=== PATIENT | female | born 1995 | race Caucasian/White ===

== ENCOUNTER 2017-11-21 19:35 | Emergency (ER) | payer SELFPAY ==
--- NOTE | 2017-11-21 20:13 | EDM.PDOC ---
ED HPI GENERAL MEDICAL PROBLEM - General Chief Complaint: General Stated Complaint: PT WEAK Time Seen by Provider: 11/21/17 20:07 - History of Present Illness INITIAL COMMENTS - FREE TEXT/NARRATIVE: HISTORY AND PHYSICAL: History of present illness: Patient's 22-year-old female who presents with a concern of multiple complaints states she had numbness of her legs bilaterally her right arm has been intermittent times one day she had vaginal bleeding related to her schedule. She denies any visual disturbances denies any trauma denies any chest or abdominal pain or other concerns she is a smoker she does not get regular medical care. Review of systems: As per history of present illness and below otherwise all systems reviewed and negative. Past medical history: As per history of present illness and as reviewed below otherwise noncontributory. Surgical history: As per history of present illness and as reviewed below otherwise noncontributory. Social history: No reported history of drug or alcohol abuse. Family history: As per history of present illness and as reviewed below otherwise noncontributory. Physical exam: HEENT: Atraumatic, normocephalic, pupils reactive, negative for conjunctival pallor or scleral icterus, mucous membranes moist, throat clear, neck supple, nontender, trachea midline. Lungs: Clear to auscultation, breath sounds equal bilaterally, chest nontender. Heart: S1S2, regular, negative for clicks, rubs, or JVD. Abdomen: Soft, nondistended, nontender. Negative for masses or hepatosplenomegaly. Negative for costovertebral tenderness. Pelvis: Stable nontender. Genitourinary: Deferred. Rectal: Deferred. Extremities: Atraumatic, negative for cords or calf pain. Neurovascular unremarkable. Neuro: Awake, alert, oriented. Cranial nerves II through XII unremarkable. Cerebellum unremarkable. Motor and sensory unremarkable throughout. Exam nonfocal. Diagnostics: CBC CMP PT/INR CT brain hCG urine drug screen Therapeutics: None Impression: #1 vaginal bleeding #2 paresthesia etiology to be determined Definitive disposition and diagnosis as appropriate pending reevaluation and review of above. - Related Data Allergies Allergy/AdvReac Type Severity Reaction Status Date / Time No Known Allergies Allergy Verified 11/21/17 20:43 Home Meds: Home Meds . [No Known Home Meds] 11/21/17 [History] ED ROS GENERAL - Review of Systems Review Of Systems: ROS reveals no pertinent complaints other than HPI. ED EXAM, GENERAL - Physical Exam Exam: See Below (See dictation) Course - Vital Signs Last Recorded V/S: Last Vital Signs Temp 36.6 C 11/21/17 21:52 Pulse 79 11/21/17 21:52 Resp 18 11/21/17 21:52 BP 110/76 11/21/17 21:52 Pulse Ox 98 11/21/17 21:52 - Orders/Labs/Meds Orders: Active Orders 24 hr Category Date Time Status EKG Documentation Completion [RC] STAT Care 11/21/17 20:10 Active Head wo Cont [CT] Stat Exams 11/21/17 20:13 Taken DRUG SCREEN, URINE [URCHEM] Stat Lab 11/21/17 20:39 Ordered Labs: Laboratory Tests 11/21/17 11/21/17 11/21/17 Range/Units 20:21 20:21 20:21 WBC 9.74 (4.0-11.0) K/uL RBC 4.04 L (4.30-5.90) M/uL Hgb 12.9 (12.0-16.0) g/dL Hct 37.1 (36.0-46.0) % MCV 91.8 (80.0-98.0) fL MCH 31.9 (27.0-32.0) pg MCHC 34.8 (31.0-37.0) g/dL RDW Std Deviation 40.5 (28.0-62.0) fl RDW Coeff of Gabriela 12 (11.0-15.0) % Plt Count 254 (150-400) K/uL MPV 9.90 (7.40-12.00) fL Neut % (Auto) 56.4 (48.0-80.0) % Lymph % (Auto) 33.6 (16.0-40.0) % Lynn % (Auto) 8.7 (0.0-15.0) % Eos % (Auto) 1.1 (0.0-7.0) % Baso % (Auto) 0.2 (0.0-1.5) % Neut # (Auto) 5.5 (1.4-5.7) K/uL Lymph # (Auto) 3.3 H (0.6-2.4) K/uL Lynn # (Auto) 0.9 H (0.0-0.8) K/uL Eos # (Auto) 0.1 (0.0-0.7) K/uL Baso # (Auto) 0.0 (0.0-0.1) K/uL Nucleated RBC % 0.0 /100WBC Nucleated RBCs # 0 K/uL INR 0.98 Sodium 141 (136-145) mmol/L Potassium 3.7 (3.5-5.1) mmol/L Chloride 108 H (98-107) mmol/L Carbon Dioxide 23.9 (21.0-32.0) mmol/L BUN 12 (7.0-18.0) mg/dL Creatinine 0.7 (0.6-1.0) mg/dL Est Cr Clr Drug Dosing 103.40 mL/min Estimated GFR (MDRD) > 60.0 ml/min Glucose 85 (74-106) mg/dL Calcium 8.8 (8.5-10.1) mg/dL Total Bilirubin 0.1 L (0.2-1.0) mg/dL AST 17 (15-37) IU/L ALT 19 (14-63) IU/L Alkaline Phosphatase 51 (46-116) U/L Total Protein 7.2 (6.4-8.2) g/dL Albumin 4.1 (3.4-5.0) g/dL Globulin 3.1 (2.0-3.5) g/dL Albumin/Globulin Ratio 1.3 (1.3-2.8) HCG, Qual (NEG) Urine Opiates Screen (NEGATIVE) Ur Oxycodone Screen (NEGATIVE) Urine Methadone Screen (NEGATIVE) Ur Barbiturates Screen (NEGATIVE) Ur Phencyclidine Scrn (NEGATIVE) Ur Amphetamine Screen (NEGATIVE) U Methamphetamines Scrn (NEGATIVE) U Benzodiazepines Scrn (NEGATIVE) U Cocaine Metab Screen (NEGATIVE) U Marijuana (THC) Screen (NEGATIVE) 11/21/17 11/21/17 Range/Units 20:21 20:39 WBC (4.0-11.0) K/uL RBC (4.30-5.90) M/uL Hgb (12.0-16.0) g/dL Hct (36.0-46.0) % MCV (80.0-98.0) fL MCH (27.0-32.0) pg MCHC (31.0-37.0) g/dL RDW Std Deviation (28.0-62.0) fl RDW Coeff of Gabriela (11.0-15.0) % Plt Count (150-400) K/uL MPV (7.40-12.00) fL Neut % (Auto) (48.0-80.0) % Lymph % (Auto) (16.0-40.0) % Lynn % (Auto) (0.0-15.0) % Eos % (Auto) (0.0-7.0) % Baso % (Auto) (0.0-1.5) % Neut # (Auto) (1.4-5.7) K/uL Lymph # (Auto) (0.6-2.4) K/uL Lynn # (Auto) (0.0-0.8) K/uL Eos # (Auto) (0.0-0.7) K/uL Baso # (Auto) (0.0-0.1) K/uL Nucleated RBC % /100WBC Nucleated RBCs # K/uL INR Sodium (136-145) mmol/L Potassium (3.5-5.1) mmol/L Chloride (98-107) mmol/L Carbon Dioxide (21.0-32.0) mmol/L BUN (7.0-18.0) mg/dL Creatinine (0.6-1.0) mg/dL Est Cr Clr Drug Dosing mL/min Estimated GFR (MDRD) ml/min Glucose (74-106) mg/dL Calcium (8.5-10.1) mg/dL Total Bilirubin (0.2-1.0) mg/dL AST (15-37) IU/L ALT (14-63) IU/L Alkaline Phosphatase (46-116) U/L Total Protein (6.4-8.2) g/dL Albumin (3.4-5.0) g/dL Globulin (2.0-3.5) g/dL Albumin/Globulin Ratio (1.3-2.8) HCG, Qual NEGATIVE (NEG) Urine Opiates Screen NEGATIVE (NEGATIVE) Ur Oxycodone Screen NEGATIVE (NEGATIVE) Urine Methadone Screen NEGATIVE (NEGATIVE) Ur Barbiturates Screen NEGATIVE (NEGATIVE) Ur Phencyclidine Scrn NEGATIVE (NEGATIVE) Ur Amphetamine Screen NEGATIVE (NEGATIVE) U Methamphetamines Scrn NEGATIVE (NEGATIVE) U Benzodiazepines Scrn NEGATIVE (NEGATIVE) U Cocaine Metab Screen NEGATIVE (NEGATIVE) U Marijuana (THC) Screen NEGATIVE (NEGATIVE) Departure - Departure Time of Disposition: 21:54 Disposition: Home, Self-Care 01 Condition: Good Clinical Impression: Vaginal bleeding, Paresthesia - Discharge Information Referrals: PCP,None [Primary Care Provider] - Forms: ED Department Discharge Additional Instructions: The following information is given to patients seen in the emergency department who are being discharged to home. This information is to outline your options for follow-up care. We provide all patients seen in our emergency department with a follow-up referral. The need for follow-up, as well as the timing and circumstances, are variable depending upon the specifics of your emergency department visit. If you don't have a primary care physician on staff, we will provide you with a referral. We always advise you to contact your personal physician following an emergency department visit to inform them of the circumstance of the visit and for follow-up with them and/or the need for any referrals to a consulting specialist. The emergency department will also refer you to a specialist when appropriate. This referral assures that you have the opportunity for followup care with a specialist. All of these measure are taken in an effort to provide you with optimal care, which includes your followup. Under all circumstances we always encourage you to contact your private physician who remains a resource for coordinating your care. When calling for followup care, please make the office aware that this follow-up is from your recent emergency room visit. If for any reason you are refused follow-up, please contact the [facility] emergency department at and asked to speak to the emergency department charge nurse. [facility] Specialty Care - Neurology Professional Building [address] [place] [address], [address] [place] [address] [facility] Primary Care - Women's Health [address] [place] [id number] - My Orders Last 24 Hours: My Active Orders 11/21/17 20:10 EKG Documentation Completion [RC] STAT 11/21/17 20:13 Head wo Cont [CT] Stat 11/21/17 20:39 DRUG SCREEN, URINE [URCHEM] Stat - Assessment/Plan Last 24 Hours: My Active Orders 11/21/17 20:10 EKG Documentation Completion [RC] STAT 11/21/17 20:13 Head wo Cont [CT] Stat 11/21/17 20:39 DRUG SCREEN, URINE [URCHEM] Stat
[2017-11-21 20:48] LABS: CHLORIDE,CL 108 mmol/L (98-107); SODIUM,NA 141 mmol/L (136-145)
--- NOTE | 2017-11-22 13:11 | CT ---
EXAM DATE: 11/21/17 PATIENT'S AGE: 22 Patient: CABRERA CAR Facility: [place], [place] Site . Site : 1995 Study: CT Head [id number]/[id number] 9:20:34 PM Ordering Physician: Drea Kaba Final Report: CT HEAD DATE: 11/21/2017 CLINICAL HISTORY: Patient with weakness, numbness and tingling. TECHNIQUE: Standard CT scanning of the head was performed. COMPARISON: None. FINDINGS: There is no intracranial hemorrhage. The barber matter-white matter differentiation is intact. The size of the ventricular system is normal for age. There is no mass effect or midline shift. The calvarium is unremarkable. The orbits are unremarkable. The paranasal sinuses are unremarkable. The mastoid air cells are unremarkable. The soft tissues are unremarkable. IMPRESSION: Normal head CT. Please note that all CT scans at this facility use dose modulation, iterative reconstruction, and/or weight-based dosing when appropriate to reduce radiation dose to as low as reasonably achievable. Dictated by: Marely Don MD @ 11/21/2017 21:43:51 (Electronic Signature) Report Signed by Proxy. [facility]
== END 2017-11-21 22:03 | disposition home or self-care (01) ==
LOC: MW.ED 19:35
DX: N93.9 Abnormal uterine and vaginal bleeding, unspecified (principal); R20.2 Paresthesia of skin
CPT/HCPCS: 36415; 70450; 70450-26; 80053; 80305; 84703; 85025; 85610; 93005; 99283; 99284-25

== ENCOUNTER 2017-12-22 20:26 | Emergency (ER) | payer OTHER ==
--- NOTE | 2017-12-22 20:49 | EDM.PDOC ---
ED HPI GENERAL MEDICAL PROBLEM - General Chief Complaint: Upper Extremity Injury/Pain Stated Complaint: SMASHED LT HAND Time Seen by Provider: 12/22/17 20:49 Source of Information: Reports: Patient - History of Present Illness INITIAL COMMENTS - FREE TEXT/NARRATIVE: HISTORY AND PHYSICAL: History of present illness: [Patient was at work and her hand got stuck or "smashed" between a [employer] gait/ lift gate on a track and a couch that they were moving, she complains of left hand pain 5 out of 10 nonradiating there is a small central abrasion on the dorsum of her hand minimal swelling no bruising entirely limb is neurovascularly intact unaffected above the wrist left upper extremity involved no other injury no head injury or loss of consciousness no fever nausea vomiting chills sweats no pallor or paresthesia Injury occurred 24 hours prior to arrival ] Review of systems: As per history of present illness and below otherwise all systems reviewed and negative. Past medical history: As per history of present illness and as reviewed below otherwise noncontributory. Surgical history: As per history of present illness and as reviewed below otherwise noncontributory. Social history: No reported history of drug or alcohol abuse. Family history: As per history of present illness and as reviewed below otherwise noncontributory. Physical exam: HEENT: Atraumatic, normocephalic, pupils reactive, negative for conjunctival pallor or scleral icterus, mucous membranes moist, throat clear, neck supple, nontender, trachea midline. Lungs: Clear to auscultation, breath sounds equal bilaterally, chest nontender. Heart: S1S2, regular, negative for clicks, rubs, or JVD. Abdomen: Soft, nondistended, nontender. Negative for masses or hepatosplenomegaly. Negative for costovertebral tenderness. Pelvis: Stable nontender. Genitourinary: Deferred. Rectal: Deferred. Extremities: Atraumatic, negative for cords or calf pain. Neurovascular unremarkable. Left upper extremity as per history of present illness no pallor no pain behaviors no or paresthesia Neuro: Awake, alert, oriented. Cranial nerves II through XII unremarkable. Cerebellum unremarkable. Motor and sensory unremarkable throughout. Exam nonfocal. Diagnostics: [ left hand 3 views ] Therapeutics: [T dap Splint Rest ice ibuprofen [place] orthopedist impession: [ left hand injury ] Definitive disposition and diagnosis as appropriate pending reevaluation and review of above. - Related Data Allergies Allergy/AdvReac Type Severity Reaction Status Date / Time No Known Allergies Allergy Verified 11/21/17 20:43 Home Meds: Home Meds . [No Known Home Meds] 11/21/17 [History] Past Medical History [employer] History: Reports: - Past Surgical History HEENT Surgical History: Reports: Oral Surgery, Tonsillectomy Female Surgical History: Reports: Section Social & Family History - Family History Family Medical History: Noncontributory Review of Systems - Review of Systems Review Of Systems: ROS reveals no pertinent complaints other than HPI. ED EXAM, GENERAL - Physical Exam Exam: See Below Course - Vital Signs Last Recorded V/S: Last Vital Signs Temp 97.7 F 12/22/17 20:41 Pulse 75 12/22/17 20:41 Resp 16 12/22/17 20:41 BP 114/75 12/22/17 20:41 Pulse Ox 100 12/22/17 20:41 - Orders/Labs/Meds Orders: Active Orders 24 hr Category Date Time Status Vaccines to be Administered [RC] PER UNIT ROUTINE Care 12/22/17 21:20 Ordered Hand Comp Min 3V Lt [CR] Stat Exams 12/22/17 20:40 Taken Diphth,Pertuss(Acell),Tet Vac [Adacel] Med 12/22/17 21:20 Once 0.5 ml IM .ONCE ONE Medication Orders Diphtheria/Tetanus/Acell Pertussis (Adacel) 0.5 ml IM .ONCE ONE Stop: 12/22/17 21:21 Meds: Medications Generic Name Dose Route Start Last Admin Trade Name Kaye PRN Reason Stop Dose Admin Diphtheria/Tetanus/Acell Pertussis 0.5 ml 12/22/17 21:20 Adacel IM 12/22/17 21:21 .ONCE ONE Departure - Departure Time of Disposition: 21:22 Disposition: Home, Self-Care 01 Condition: Good Clinical Impression: Injury of left hand - Discharge Information Referrals: PCP,None [Primary Care Provider] - Forms: ED Department Discharge Additional Instructions: Tetanus status is updated today Rest Ice 20 minute intervals 3 times daily as needed Ibuprofen 400 mg 3 times 7-10 days Wes for comfort Follow-up with orthopedist, call phone number below to schedule appropriate follow-up [facility] Special[facility] - Orthopedic Clinic [address], [address] [place] [address] my orthopedic The following information is given to patients seen in the emergency department who are being discharged to home. This information is to outline your options for follow-up care. We provide all patients seen in our emergency department with a follow-up referral. The need for follow-up, as well as the timing and circumstances, are variable depending upon the specifics of your emergency department visit. If you don't have a primary care physician on staff, we will provide you with a referral. We always advise you to contact your personal physician following an emergency department visit to inform them of the circumstance of the visit and for follow-up with them and/or the need for any referrals to a consulting specialist. The emergency department will also refer you to a specialist when appropriate. This referral assures that you have the opportunity for follow-up care with a specialist. All of these measure are taken in an effort to provide you with optimal care, which includes your follow-up. Under all circumstances we always encourage you to contact your private physician who remains a resource for coordinating your care. When calling for follow-up care, please make the office aware that this follow-up is from your recent emergency room visit. If for any reason you are refused follow-up, please contact the [facility] emergency department at and asked to speak to the emergency department charge nurse. - My Orders Last 24 Hours: My Active Orders 12/22/17 20:40 Hand Comp Min 3V Lt [CR] Stat 12/22/17 21:20 Vaccines to be Administered [RC] PER UNIT ROUTINE Diphth,Pertuss(Acell),Tet Vac [Adacel] 0.5 ml IM .ONCE ONE - Assessment/Plan Last 24 Hours: My Active Orders 12/22/17 20:40 Hand Comp Min 3V Lt [CR] Stat 12/22/17 21:20 Vaccines to be Administered [RC] PER UNIT ROUTINE Diphth,Pertuss(Acell),Tet Vac [Adacel] 0.5 ml IM .ONCE ONE
[2017-12-22] MEDS ORDERED: Diphtheria,Pertussis(Acell),Tetanus Vaccine 0.5 ML Syringe IM ONE (21:20)
--- NOTE | 2017-12-23 10:26 | CR ---
EXAM DATE: 12/22/17 PATIENT'S AGE: 22 Patient: CABRERA CAR Facility: [place], [place] Site . Site : 1995 Study: XRay Extremity Left [id number] 8:58:26 PM Ordering Physician: Tapan Banda Final Report: INDICATION: L hand pain after getting hand "pinned between couch and gate" Wound on posterior hand. LEFT HAND No fracture, dislocation, or destructive lesion of bone is seen. No significant arthritic changes or soft tissue abnormalities are identified. IMPRESSION: Negative left hand radiographs. GEOVANY FLORES MD [employer] Dictated by: Jersey Flores MD @ 12/22/2017 21:18:16 (Electronic Signature) Report Signed by Proxy. [facility]
== END 2017-12-22 22:15 | disposition home or self-care (01) ==
LOC: MW.ED 20:26
DX: S69.92XA Unspecified injury of left wrist, hand and finger(s), initial encounter (principal); Z23 Encounter for immunization; W23.0XXA Caught, crushed, jammed, or pinched between moving objects, initial encounter
CPT/HCPCS: 73130-26-LT; 73130-LT; 90471; 90715; 99283; 99283-25

== ENCOUNTER 2018-01-19 18:34 | Emergency (ER) | payer SELFPAY ==
--- NOTE | 2018-01-19 19:03 | EDM.PDOC ---
ED HPI GENERAL MEDICAL PROBLEM - General Chief Complaint: [employer] Problem Stated Complaint: PELVIS PAIN WITH Time Seen by Provider: 01/19/18 19:02 Source of Information: Reports: Patient - History of Present Illness INITIAL COMMENTS - FREE TEXT/NARRATIVE: HISTORY AND PHYSICAL: History of present illness: [Patient presents with low pelvic pain 4 out of 10 nonradiating no vaginal discharge bleeding or fluid leakage several prior miscarriages prior to 16 weeks] she has had a recent twin with 2 viable infants No fever nausea vomiting chills sweats LMP unknown to the patient due to irregular menses 3 months prior was the last regular menses Review of systems: As per history of present illness and below otherwise all systems reviewed and negative. Past medical history: As per history of present illness and as reviewed below otherwise noncontributory. Surgical history: As per history of present illness and as reviewed below otherwise noncontributory. Social history: No reported history of drug or alcohol abuse. Family history: As per history of present illness and as reviewed below otherwise noncontributory. Physical exam: HEENT: Atraumatic, normocephalic, pupils reactive, negative for conjunctival pallor or scleral icterus, mucous membranes moist, throat clear, neck supple, nontender, trachea midline. Lungs: Clear to auscultation, breath sounds equal bilaterally, chest nontender. Heart: S1S2, regular, negative for clicks, rubs, or JVD. Abdomen: Soft, nondistended, nontender. Negative for masses or hepatosplenomegaly. Negative for costovertebral tenderness. Pelvis: Stable nontender. Genitourinary external exam within normal limits no cervical motion tenderness cervix is closed external exam no mass scar or lesion internal exam no mass scarred lesion pink moist mucosa Rectal: Deferred. Extremities: Atraumatic, negative for cords or calf pain. Neurovascular unremarkable. Neuro: Awake, alert, oriented. Cranial nerves II through XII unremarkable. Cerebellum unremarkable. Motor and sensory unremarkable throughout. Exam nonfocal. Diagnostics: [CBC CMP UA hCG serum quantitative ABO type] urine culture Wet mount GC chlamydia Ultrasound OB Therapeutics: [TG vitamins Follow-up with OB] Impression: [] Irregular menses Definitive disposition and diagnosis as appropriate pending reevaluation and review of above. pelvic Pain Score (Numeric/FACES): 7 - Related Data Allergies Allergy/AdvReac Type Severity Reaction Status Date / Time No Known Allergies Allergy Verified 01/19/18 18:54 Home Meds: Home Meds Folic Acid/Multivit-Min/Lutein [Multi-Vitamin Gummies] 1 each PO DAILY 01/19/18 [History] Past Medical History - Past Health History Medical/Surgical History: Denies Medical/Surgical History [employer] History: Reports: - Past Surgical History HEENT Surgical History: Reports: Oral Surgery, Tonsillectomy Female Surgical History: Reports: Section Social & Family History - Family History Family Medical History: Noncontributory ED ROS GENERAL - Review of Systems Review Of Systems: See Below ED EXAM, GENERAL - Physical Exam Exam: See Below Course - Vital Signs Last Recorded V/S: Last Vital Signs Temp 98.7 F 01/19/18 18:55 Pulse 94 01/19/18 18:55 Resp 18 01/19/18 18:55 BP 137/74 01/19/18 18:55 Pulse Ox 100 01/19/18 18:55 - Orders/Labs/Meds Orders: Active Orders 24 hr Category Date Time Status OB 1st Tri Sgl 1st Gest [US] Stat Exams 01/19/18 19:06 Taken CHLAMYDIA AND GONORRHEA BY TMA Stat Lab 01/19/18 19:04 Received CULTURE URINE [RM] Stat Lab 01/19/18 19:01 Received HCG QUALITATIVE,URINE [URCHEM] Stat Lab 01/19/18 19:38 Ordered UA W/MICROSCOPIC [URIN] Stat Lab 01/19/18 19:04 Ordered Labs: Laboratory Tests 01/19/18 01/19/18 01/19/18 Range/Units 19:04 19:04 19:04 WBC 9.16 (4.0-11.0) K/uL RBC 4.08 L (4.30-5.90) M/uL Hgb 12.9 (12.0-16.0) g/dL Hct 36.6 (36.0-46.0) % MCV 89.7 (80.0-98.0) fL MCH 31.6 (27.0-32.0) pg MCHC 35.2 (31.0-37.0) g/dL RDW Std Deviation 38.8 (28.0-62.0) fl RDW Coeff of Gabriela 12 (11.0-15.0) % Plt Count 241 (150-400) K/uL MPV 9.50 (7.40-12.00) fL Neut % (Auto) 57.0 (48.0-80.0) % Lymph % (Auto) 34.7 (16.0-40.0) % [place] % (Auto) 6.7 (0.0-15.0) % Eos % (Auto) 1.4 (0.0-7.0) % Baso % (Auto) 0.2 (0.0-1.5) % Neut # (Auto) 5.2 (1.4-5.7) K/uL Lymph # (Auto) 3.2 H (0.6-2.4) K/uL [place] # (Auto) 0.6 (0.0-0.8) K/uL Eos # (Auto) 0.1 (0.0-0.7) K/uL Baso # (Auto) 0.0 (0.0-0.1) K/uL Nucleated RBC % 0.0 /100WBC Nucleated RBCs # 0 K/uL Sodium 138 (136-145) mmol/L Potassium 3.8 (3.5-5.1) mmol/L Chloride 104 (98-107) mmol/L Carbon Dioxide 25.0 (21.0-32.0) mmol/L BUN 11 (7.0-18.0) mg/dL Creatinine 0.6 (0.6-1.0) mg/dL Est Cr Clr Drug Dosing 120.63 mL/min Estimated GFR (MDRD) > 60.0 ml/min Glucose 93 (74-106) mg/dL Calcium 8.6 (8.5-10.1) mg/dL Total Bilirubin 0.2 (0.2-1.0) mg/dL AST 17 (15-37) IU/L ALT 19 (14-63) IU/L Alkaline Phosphatase 42 L (46-116) U/L Total Protein 6.9 (6.4-8.2) g/dL Albumin 4.0 (3.4-5.0) g/dL Globulin 2.9 (2.0-3.5) g/dL Albumin/Globulin Ratio 1.4 (1.3-2.8) HCG, Quant 9121.0 mIU/mL Urine Color YELLOW Urine Appearance HAZY Urine pH 7.0 (5.0-8.0) Ur Specific [place] <= 1.005 (1.001-1.035) Urine Protein NEGATIVE (NEGATIVE) mg/dL Urine Glucose (UA) NEGATIVE (NEGATIVE) mg/dL Urine Ketones NEGATIVE (NEGATIVE) mg/dL Urine Occult Blood NEGATIVE (NEGATIVE) Urine Nitrite NEGATIVE (NEGATIVE) Urine Bilirubin NEGATIVE (NEGATIVE) Urine Urobilinogen 0.2 (<2.0) EU/dL Ur Leukocyte Esterase TRACE (NEGATIVE) Urine RBC 0-2 (0-2/HPF) Urine WBC 0-4 (0-5/HPF) Ur Epithelial Cells MODERATE (NONE-FEW) Urine Bacteria FEW (NEGATIVE) Urine HCG, Qual (NEGATIVE) Peyton species DNA (NEGATIVE) Gardnerella DNA Probe (NEGATIVE) Trichomonas DNA Probe (NEGATIVE) Blood Type 01/19/18 01/19/18 01/19/18 Range/Units 19:04 19:38 19:45 WBC (4.0-11.0) K/uL RBC (4.30-5.90) M/uL Hgb (12.0-16.0) g/dL Hct (36.0-46.0) % MCV (80.0-98.0) fL MCH (27.0-32.0) pg MCHC (31.0-37.0) g/dL RDW Std Deviation (28.0-62.0) fl RDW Coeff of Gabriela (11.0-15.0) % Plt Count (150-400) K/uL MPV (7.40-12.00) fL Neut % (Auto) (48.0-80.0) % Lymph % (Auto) (16.0-40.0) % [place] % (Auto) (0.0-15.0) % Eos % (Auto) (0.0-7.0) % Baso % (Auto) (0.0-1.5) % Neut # (Auto) (1.4-5.7) K/uL Lymph # (Auto) (0.6-2.4) K/uL [place] # (Auto) (0.0-0.8) K/uL Eos # (Auto) (0.0-0.7) K/uL Baso # (Auto) (0.0-0.1) K/uL Nucleated RBC % /100WBC Nucleated RBCs # K/uL Sodium (136-145) mmol/L Potassium (3.5-5.1) mmol/L Chloride (98-107) mmol/L Carbon Dioxide (21.0-32.0) mmol/L BUN (7.0-18.0) mg/dL Creatinine (0.6-1.0) mg/dL Est Cr Clr Drug Dosing mL/min Estimated GFR (MDRD) ml/min Glucose (74-106) mg/dL Calcium (8.5-10.1) mg/dL Total Bilirubin (0.2-1.0) mg/dL AST (15-37) IU/L ALT (14-63) IU/L Alkaline Phosphatase (46-116) U/L Total Protein (6.4-8.2) g/dL Albumin (3.4-5.0) g/dL Globulin (2.0-3.5) g/dL Albumin/Globulin Ratio (1.3-2.8) HCG, Quant mIU/mL Urine Color Urine Appearance Urine pH (5.0-8.0) Ur Specific [place] (1.001-1.035) Urine Protein (NEGATIVE) mg/dL Urine Glucose (UA) (NEGATIVE) mg/dL Urine Ketones (NEGATIVE) mg/dL Urine Occult Blood (NEGATIVE) Urine Nitrite (NEGATIVE) Urine Bilirubin (NEGATIVE) Urine Urobilinogen (<2.0) EU/dL Ur Leukocyte Esterase (NEGATIVE) Urine RBC (0-2/HPF) Urine WBC (0-5/HPF) Ur Epithelial Cells (NONE-FEW) Urine Bacteria (NEGATIVE) Urine HCG, Qual POSITIVE (NEGATIVE) Peyton species DNA NEGATIVE (NEGATIVE) Gardnerella DNA Probe POSITIVE H (NEGATIVE) Trichomonas DNA Probe NEGATIVE (NEGATIVE) Blood Type B POSITIVE Departure - Departure Time of Disposition: 22:06 Disposition: Home, Self-Care 01 Condition: Good Clinical Impression: , Irregular menstruation - Discharge Information Referrals: PCP,None [Primary Care Provider] - Forms: ED Department Discharge Additional Instructions: The following information is given to patients seen in the emergency department who are being discharged to home. This information is to outline your options for follow-up care. We provide all patients seen in our emergency department with a follow-up referral. The need for follow-up, as well as the timing and circumstances, are variable depending upon the specifics of your emergency department visit. If you don't have a primary care physician on staff, we will provide you with a referral. We always advise you to contact your personal physician following an emergency department visit to inform them of the circumstance of the visit and for follow-up with them and/or the need for any referrals to a consulting specialist. The emergency department will also refer you to a specialist when appropriate. This referral assures that you have the opportunity for follow-up care with a specialist. All of these measure are taken in an effort to provide you with optimal care, which includes your follow-up. Under all circumstances we always encourage you to contact your private physician who remains a resource for coordinating your care. When calling for follow-up care, please make the office aware that this follow-up is from your recent emergency room visit. If for any reason you are refused follow-up, please contact the [facility] emergency department at and asked to speak to the emergency department charge nurse. - My Orders Last 24 Hours: My Active Orders 01/19/18 19:01 CULTURE URINE [RM] Stat 01/19/18 19:04 CHLAMYDIA AND GONORRHEA BY TMA Stat UA W/MICROSCOPIC [URIN] Stat 01/19/18 19:06 OB 1st Tri Sgl 1st Gest [US] Stat 01/19/18 19:38 HCG QUALITATIVE,URINE [URCHEM] Stat - Assessment/Plan Last 24 Hours: My Active Orders 01/19/18 19:01 CULTURE URINE [RM] Stat 01/19/18 19:04 CHLAMYDIA AND GONORRHEA BY TMA Stat UA W/MICROSCOPIC [URIN] Stat 01/19/18 19:06 OB 1st Tri Sgl 1st Gest [US] Stat 01/19/18 19:38 HCG QUALITATIVE,URINE [URCHEM] Stat
[2018-01-19 20:05] LABS: CHLORIDE,CL 104 mmol/L (98-107); SODIUM,NA 138 mmol/L (136-145)
--- NOTE | 2018-01-20 17:50 | US ---
EXAM DATE: 01/19/18 PATIENT'S AGE: 22 Patient: CABRERA CAR Facility: [place], [place] Site . Site : 1995 Study: US OB Pelvis [id number] 8:49:45 PM Ordering Physician: Tapan Banda Final Report: INDICATION: pelvic pain TECHNIQUE: OB ultrasound. COMPARISON: None. FINDINGS: Nonspecific fluid collection noted within the endometrium. No discrete evidence of a yolk sac or pole. Questionable subchorionic hemorrhage. Both ovaries are visualized and grossly unremarkable. IMPRESSION : Nonspecific fluid collection noted within the endometrium. No discrete evidence of a yolk sac or pole. Questionable subchorionic hemorrhage. Recommend follow-up with serial beta HCG and pelvic ultrasound. Dictated by Naga Salas MD @ 01/19/2018 9:08:12 PM Dictated by: Naga Salas MD @ 01/19/2018 21:10:41 (Electronic Signature) Report Signed by Proxy. [facility] MEDICAL CENTERAmanda
== END 2018-01-19 22:10 | disposition home or self-care (01) ==
LOC: MW.ED 18:34
DX: Z34.90 Encounter for supervision of normal pregnancy, unspecified, unspecified trimester (principal)
CPT/HCPCS: 36415; 76801; 76801-26; 80053; 81001; 81025; 84702; 85025; 86900; 86901; 87086; 87480; 87491; 87510; 87591; 87660; 99282; 99284-25

== ENCOUNTER 2018-01-29 21:41 | Emergency (ER) | payer SELFPAY ==
[2018-01-29] MEDS ORDERED: Sodium Chloride 0.9% 2.5 ML Syringe FLUSH PRN (22:51)
[2018-01-29] MEDS ORDERED: Ondansetron 4 MG/2 ML SDV IVPUSH ONE (22:51)
[2018-01-29] MEDS ORDERED: Sodium Chloride 0.9% 1,000 ML IV ONE (22:51)
[2018-01-29] MEDS ORDERED: Sodium Chloride 0.9% 10 ML Syringe FLUSH PRN (22:51)
--- NOTE | 2018-01-29 22:55 | EDM.PDOC ---
ED HPI GENERAL MEDICAL PROBLEM - General Chief Complaint: General Stated Complaint: UNK Time Seen by Provider: 01/29/18 22:42 - History of Present Illness INITIAL COMMENTS - FREE TEXT/NARRATIVE: HISTORY AND PHYSICAL: History of present illness: The patient is a 22-year-old female whose last menstrual period was November 16 and was seen here in emergency department and followed up in the clinic with multiple visits to check serum quantitative hCG is as she may have a that is not progressing appropriately. The patient last had a serum quantitative hCG on January 24 which was 28,000-28 and she had a pelvic ultrasound on January 26 which revealed a gestational sac estimated at 7 weeks 0 days with a subtle yolk sac but no pole. A blighted opened was what they were considering and the patient has scheduled follow-up this week with a repeat ultrasound and follow-up care with Dr. Troncoso. The patient presents today with intractable nausea intermittent vomiting generalized weakness and pelvic pressure. She's had no vaginal bleeding no dysuria no actual diarrhea or flank pain. She has no abdominal pain and describes the pelvic pressure as deep in her vagina. She says she feels lightheaded and weak and has overall malaise. Review of systems: As per history of present illness and below otherwise all systems reviewed and negative. Past medical history: As per history of present illness and as reviewed below otherwise noncontributory. Surgical history: As per history of present illness and as reviewed below otherwise noncontributory. Social history: No reported history of drug or alcohol abuse. Family history: As per history of present illness and as reviewed below otherwise noncontributory. Physical exam: General: Well-developed well-nourished female who is nontoxic and vital signs are reviewed by me. HEENT: Atraumatic, normocephalic, negative for conjunctival pallor or scleral icterus, mucous membranes moist, throat clear, neck supple, nontender, trachea midline. Lungs: Clear to auscultation, breath sounds equal bilaterally, chest nontender. Heart: S1S2, regular, negative for clicks, rubs, or JVD. Abdomen: Soft, nondistended, nontender. No palpable tenderness bowel sounds are normoactive but there is some tympany on percussion of the mid abdomen. There is no rebound or guarding and I cannot reproduce the pain on palpation Negative for masses or hepatosplenomegaly. Negative for costovertebral tenderness. Pelvis: Stable nontender. Genitourinary: Deferred. Rectal: Deferred. Extremities: Atraumatic, negative for cords or calf pain. Neurovascular unremarkable. Neuro: Awake, alert, oriented. Cranial nerves II through XII unremarkable. Cerebellum unremarkable. Motor and sensory unremarkable throughout. Exam nonfocal. Diagnostics: CBC CMP UA serum quantitative hCG urine culture Lab values from January 19 January 21 and January 24 were reviewed by me Therapeutics: IV fluids Zofran The patient is feeling much better and is aware of all testing results including the early UTI [place] [address] which [place] [address]. The patient has a scheduled appointment with Dr. Aba crespo for Tuesday but I've advised her to call Yandy, her provider in the clinic and chat with her about the blood test in the interim. I will give her some Zofran for home and have advised pushing hydration. Also give her Keflex for the early UTI. I will not repeat the pelvic ultrasound as the patient is not having bleeding and we are ready have a documented intrauterine gestational sac. Impression: Nausea and vomiting in , early UTI, early versus blighted ovum workup as an outpatient Definitive disposition and diagnosis as appropriate pending reevaluation and review of above. 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 ED EXAM, GENERAL - Physical Exam Exam: See Below (see Dictation) Course - Vital Signs Last Recorded V/S: Last Vital Signs Temp 36.6 C 01/29/18 22:20 Pulse 83 01/29/18 22:20 Resp 16 01/29/18 22:20 BP 120/78 01/29/18 22:20 Pulse Ox 99 01/29/18 22:20 - Orders/Labs/Meds Orders: Active Orders 24 hr Category Date Time Status CULTURE URINE [RM] Stat Lab 01/30/18 00:00 Received UA W/MICROSCOPIC [URIN] Stat Lab 01/29/18 22:55 Ordered Sodium Chloride 0.9% [Saline Flush] Med 01/29/18 22:51 Active 10 ml FLUSH ASDIRECTED PRN Sodium Chloride 0.9% [Saline Flush] Med 01/29/18 22:51 Active 2.5 ml FLUSH ASDIRECTED PRN Saline Lock Insert [OM.PC] Stat Oth 01/29/18 22:51 Ordered Medication Orders Sodium Chloride (Saline Flush) 10 ml FLUSH ASDIRECTED PRN PRN Reason: Keep Vein Open Sodium Chloride (Saline Flush) 2.5 ml FLUSH ASDIRECTED PRN PRN Reason: Keep Vein Open Labs: Laboratory Tests 01/29/18 01/29/18 01/29/18 Range/Units 22:55 22:58 22:58 WBC 10.73 (4.0-11.0) K/uL RBC 4.08 L (4.30-5.90) M/uL Hgb 12.8 (12.0-16.0) g/dL Hct 36.5 (36.0-46.0) % MCV 89.5 (80.0-98.0) fL MCH 31.4 (27.0-32.0) pg MCHC 35.1 (31.0-37.0) g/dL RDW Std Deviation 38.0 (28.0-62.0) fl RDW Coeff of Gabriela 12 (11.0-15.0) % Plt Count 273 (150-400) K/uL MPV 9.40 (7.40-12.00) fL Neut % (Auto) 63.3 (48.0-80.0) % Lymph % (Auto) 28.5 (16.0-40.0) % [place] % (Auto) 6.5 (0.0-15.0) % Eos % (Auto) 1.5 (0.0-7.0) % Baso % (Auto) 0.2 (0.0-1.5) % Neut # (Auto) 6.8 H (1.4-5.7) K/uL Lymph # (Auto) 3.1 H (0.6-2.4) K/uL [place] # (Auto) 0.7 (0.0-0.8) K/uL Eos # (Auto) 0.2 (0.0-0.7) K/uL Baso # (Auto) 0.0 (0.0-0.1) K/uL Nucleated RBC % 0.0 /100WBC Nucleated RBCs # 0 K/uL Sodium (136-145) mmol/L Potassium (3.5-5.1) mmol/L Chloride (98-107) mmol/L Carbon Dioxide (21.0-32.0) mmol/L BUN (7.0-18.0) mg/dL Creatinine (0.6-1.0) mg/dL Est Cr Clr Drug Dosing mL/min Estimated GFR (MDRD) ml/min Glucose (74-106) mg/dL Calcium (8.5-10.1) mg/dL Total Bilirubin (0.2-1.0) mg/dL AST (15-37) IU/L ALT (14-63) IU/L Alkaline Phosphatase (46-116) U/L Total Protein (6.4-8.2) g/dL Albumin (3.4-5.0) g/dL Globulin (2.0-3.5) g/dL Albumin/Globulin Ratio (1.3-2.8) HCG, Quant 67461.0 mIU/mL Urine Color YELLOW Urine Appearance HAZY Urine pH 6.5 (5.0-8.0) Ur Specific [place] <= 1.005 (1.001-1.035) Urine Protein NEGATIVE (NEGATIVE) mg/dL Urine Glucose (UA) NEGATIVE (NEGATIVE) mg/dL Urine Ketones NEGATIVE (NEGATIVE) mg/dL Urine Occult Blood NEGATIVE (NEGATIVE) Urine Nitrite NEGATIVE (NEGATIVE) Urine Bilirubin NEGATIVE (NEGATIVE) Urine Urobilinogen 0.2 (<2.0) EU/dL Ur Leukocyte Esterase SMALL (NEGATIVE) Urine RBC 1-2 (0-2/HPF) Urine WBC 1-3 (0-5/HPF) Ur Epithelial Cells MODERATE (NONE-FEW) Urine Bacteria FEW (NEGATIVE) 01/29/18 Range/Units 22:58 WBC (4.0-11.0) K/uL RBC (4.30-5.90) M/uL Hgb (12.0-16.0) g/dL Hct (36.0-46.0) % MCV (80.0-98.0) fL MCH (27.0-32.0) pg MCHC (31.0-37.0) g/dL RDW Std Deviation (28.0-62.0) fl RDW Coeff of Gabriela (11.0-15.0) % Plt Count (150-400) K/uL MPV (7.40-12.00) fL Neut % (Auto) (48.0-80.0) % Lymph % (Auto) (16.0-40.0) % [place] % (Auto) (0.0-15.0) % Eos % (Auto) (0.0-7.0) % Baso % (Auto) (0.0-1.5) % Neut # (Auto) (1.4-5.7) K/uL Lymph # (Auto) (0.6-2.4) K/uL [place] # (Auto) (0.0-0.8) K/uL Eos # (Auto) (0.0-0.7) K/uL Baso # (Auto) (0.0-0.1) K/uL Nucleated RBC % /100WBC Nucleated RBCs # K/uL Sodium 138 (136-145) mmol/L Potassium 3.9 (3.5-5.1) mmol/L Chloride 103 (98-107) mmol/L Carbon Dioxide 21.3 (21.0-32.0) mmol/L BUN 9 (7.0-18.0) mg/dL Creatinine 0.6 (0.6-1.0) mg/dL Est Cr Clr Drug Dosing 120.63 mL/min Estimated GFR (MDRD) > 60.0 ml/min Glucose 92 (74-106) mg/dL Calcium 8.7 (8.5-10.1) mg/dL Total Bilirubin 0.3 (0.2-1.0) mg/dL AST 17 (15-37) IU/L ALT 19 (14-63) IU/L Alkaline Phosphatase 37 L (46-116) U/L Total Protein 6.9 (6.4-8.2) g/dL Albumin 3.8 (3.4-5.0) g/dL Globulin 3.1 (2.0-3.5) g/dL Albumin/Globulin Ratio 1.2 L (1.3-2.8) HCG, Quant mIU/mL Urine Color Urine Appearance Urine pH (5.0-8.0) Ur Specific [place] (1.001-1.035) Urine Protein (NEGATIVE) mg/dL Urine Glucose (UA) (NEGATIVE) mg/dL Urine Ketones (NEGATIVE) mg/dL Urine Occult Blood (NEGATIVE) Urine Nitrite (NEGATIVE) Urine Bilirubin (NEGATIVE) Urine Urobilinogen (<2.0) EU/dL Ur Leukocyte Esterase (NEGATIVE) Urine RBC (0-2/HPF) Urine WBC (0-5/HPF) Ur Epithelial Cells (NONE-FEW) Urine Bacteria (NEGATIVE) Meds: Medications Generic Name Dose Route Start Last Admin Trade Name Freq PRN Reason Stop Dose Admin Sodium Chloride 10 ml 01/29/18 22:51 Saline Flush FLUSH ASDIRECTED PRN Keep Vein Open Sodium Chloride 2.5 ml 01/29/18 22:51 Saline Flush FLUSH ASDIRECTED PRN Keep Vein Open Discontinued Medications Generic Name Dose Route Start Last Admin Trade Name Freq PRN Reason Stop Dose Admin Sodium Chloride 1,000 mls @ 999 mls/hr 01/29/18 22:51 01/29/18 22:59 Normal Saline IV 01/29/18 23:51 999 mls/hr STAT ONE Administration Ondansetron HCl 4 mg 01/29/18 22:51 Zofran IVPUSH 01/29/18 22:52 ONETIME ONE Departure - Departure Time of Disposition: 00:59 Disposition: Home, Self-Care 01 Condition: Good Clinical Impression: Early stage of UTI (urinary tract infection) Qualifiers: Urinary tract infection type: site unspecified Hematuria presence: without hematuria Qualified Code(s): N39.0 - Urinary tract infection, site not specified Nausea and vomiting Qualifiers: Vomiting type: unspecified Vomiting Intractability: non-intractable Qualified Code(s): R11.2 - Nausea with vomiting, unspecified - Discharge Information Referrals: PCP,None [Primary Care Provider] - Forms: ED Department Discharge Additional Instructions: The following information is given to patients seen in the emergency department who are being discharged to home. This information is to outline your options for follow-up care. We provide all patients seen in our emergency department with a follow-up referral. The need for follow-up, as well as the timing and circumstances, are variable depending upon the specifics of your emergency department visit. If you don't have a primary care physician on staff, we will provide you with a referral. We always advise you to contact your personal physician following an emergency department visit to inform them of the circumstance of the visit and for follow-up with them and/or the need for any referrals to a consulting specialist. The emergency department will also refer you to a specialist when appropriate. This referral assures that you have the opportunity for followup care with a specialist. All of these measure are taken in an effort to provide you with optimal care, which includes your followup. Under all circumstances we always encourage you to contact your private physician who remains a resource for coordinating your care. When calling for followup care, please make the office aware that this follow-up is from your recent emergency room visit. If for any reason you are refused follow-up, please contact the [facility] emergency department at and ask to speak to the emergency department charge nurse. [facility] Primary care- Internal Medicine and Family [id number] [facility] Primary care-Women's Health [address] [place] [id number] Push sips of clear fluids and bland bites and use Zofran only as needed. You have been given the Zofran via [employer]. Take the Keflex you have also been given until it is finished for the early urinary tract infection. Please call the clinic later this morning and discuss with them care plan for this week and return to ER as needed as discussed - My Orders Last 24 Hours: My Active Orders 01/29/18 22:51 Sodium Chloride 0.9% [Saline Flush] 10 ml FLUSH ASDIRECTED PRN Sodium Chloride 0.9% [Saline Flush] 2.5 ml FLUSH ASDIRECTED PRN Saline Lock Insert [OM.PC] Stat 01/29/18 22:55 UA W/MICROSCOPIC [URIN] Stat 01/30/18 00:00 CULTURE URINE [RM] Stat - Assessment/Plan Last 24 Hours: My Active Orders 01/29/18 22:51 Sodium Chloride 0.9% [Saline Flush] 10 ml FLUSH ASDIRECTED PRN Sodium Chloride 0.9% [Saline Flush] 2.5 ml FLUSH ASDIRECTED PRN Saline Lock Insert [OM.PC] Stat 01/29/18 22:55 UA W/MICROSCOPIC [URIN] Stat 01/30/18 00:00 CULTURE URINE [RM] Stat
[2018-01-30 00:36] LABS: CHLORIDE,CL 103 mmol/L (98-107); SODIUM,NA 138 mmol/L (136-145)
== END 2018-01-30 01:25 | disposition home or self-care (01) ==
LOC: MW.ED 21:41
DX: O23.41 Unspecified infection of urinary tract in pregnancy, first trimester (principal); O21.9 Vomiting of pregnancy, unspecified; Z3A.01 Less than 8 weeks gestation of pregnancy; Z79.899 Other long term (current) drug therapy
CPT/HCPCS: 36415; 80053; 81001; 84702; 85025; 87086; 96361; 96374; 99285; J2405; J7040; 99283

== ENCOUNTER 2018-01-30 18:29 | Emergency (ER) | payer SELFPAY ==
[2018-01-30] MEDS ORDERED: Sodium Chloride 0.9% 1,000 ML IV ONE (18:30)
[2018-01-30] MEDS ORDERED: Ondansetron 4 MG/2 ML SDV IVPUSH ONE (18:30)
--- NOTE | 2018-01-30 18:48 | EDM.PDOC ---
ED HPI GENERAL MEDICAL PROBLEM - General Chief Complaint: Gastrointestinal Problem Stated Complaint: WEAKNESS AND VOMITING Time Seen by Provider: 01/30/18 18:30 Source of Information: Reports: Patient History Limitations: Reports: No Limitations - History of Present Illness INITIAL COMMENTS - FREE TEXT/NARRATIVE: HISTORY AND PHYSICAL: History of present illness: Patient is a 22-year-old female who presents to the emergency room today with complaints of generalized weakness and vomiting. She states she is approximately 7 weeks . Denies any fever, chills, abdominal pain, dysuria, vaginal bleeding, cramping, or pelvic/low back pain. Denies any dizziness, near syncope, or recent injuries/trauma. Last menstrual period was November 16, 2017: Has had a confirmed IUP; but reportedly had a "possible nonviable fetus". States she has had just found showing a subtle ureteral sac without pole she is scheduled to follow-up this week for repeat ultrasound with Dr. Troncoso. Patient reports that she was seen yesterday in our emergency room - had lab work, received IV fluids, Zofran , and prescribed an antibiotic for slight UTI and zofran ODT. Review of systems: As per history of present illness and below otherwise all systems reviewed and negative. Past medical history: As per history of present illness and as reviewed below otherwise noncontributory. Surgical history: As per history of present illness and as reviewed below otherwise noncontributory. Social history: No reported history of drug or alcohol abuse. Family history: As per history of present illness and as reviewed below otherwise noncontributory. Physical exam: General: Developed and well-nourished 22-year-old female. Alert and oriented. Nontoxic appearing and in no acute distress. HEENT: Atraumatic, normocephalic, pupils equal and reactive bilaterally, negative for conjunctival pallor or scleral icterus, mucous membranes moist, throat clear, neck supple, nontender, trachea midline. No drooling or trismus noted. No meningeal signs Lungs: Clear to auscultation, breath sounds equal bilaterally, chest nontender. Heart: S1S2, regular rate and rhythm without overt murmur Abdomen: Soft, nondistended, nontender. Negative for masses or hepatosplenomegaly. Negative for costovertebral tenderness. Pelvis: Stable nontender. Genitourinary: Deferred. Rectal: Deferred. Skin: Intact, warm, dry. No lesions or rashes noted. Extremities: Atraumatic, negative for cords or calf pain. Neurovascular unremarkable. Neuro: Awake, alert, oriented. Cranial nerves II through XII unremarkable. Cerebellum unremarkable. Motor and sensory unremarkable throughout. Exam nonfocal. Notes: Patient's physical examination today is normal. Vital signs are stable. She was evaluated yesterday (01/29/2018) and had lab work which was within normal limits. Repeat ultrasound will not be completed as she is not having any vaginal bleeding, abdominal pain or discharge. Yesterday's Quant HCG 74,429 which has been increasing. Today's Quant is 81, 169. This information was shared with the patient. I educated/encouraged her to follow-up with her ELEPHANT [facility]ER as she already has scheduled. Encouraged her to call tomorrow morning and inform them of her ER visits. Supportive care measures were reviewed and discussed. She still has Zofran available to her from yesterday's visit. Encouraged her to increase her oral fluids and rest. She is agreeable to plan of care. Denies any further questions at this time. Diagnostics: CBC, CMP, orthostatic vital signs Therapeutics: Normal saline, Zofran Impression: Early stages first trimester Nausea and Vomiting Plan: 1. Today's lab work is unremarkable. Please continue the medications you were prescribed yesterday as directed. 2. As we discussed please call your [facility] tomorrow and inform them of your ER visits to see if your appointment should be expedited. 3. Increase your oral fluids and rest frequently throughout the day. Eat small frequent meals throughout the day. 4. Return to the ED as needed and as discussed. Definitive disposition and diagnosis as appropriate pending reevaluation and review of above. 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 ED EXAM, GI/ABD - Physical Exam Exam: See Below (See dictation) Course - Vital Signs Last Recorded V/S: Last Vital Signs Temp 98.0 F 01/30/18 18:55 Pulse 74 01/30/18 18:55 Resp 18 01/30/18 18:55 BP 102/53 L 01/30/18 18:55 Pulse Ox 99 01/30/18 18:55 Orthostatic Blood Pressure [ 111/63 Standing] Orthostatic Blood Pressure [ 107/68 Sitting] Orthostatic Blood Pressure [ 102/62 Supine] - Orders/Labs/Meds Orders: Active Orders 24 hr Category Date Time Status Orthostatic Vital Signs [RC] ASDIRECTED Care 01/30/18 18:30 Active Labs: Laboratory Tests 01/30/18 01/30/18 01/30/18 Range/Units 18:35 18:35 18:35 WBC 9.80 (4.0-11.0) K/uL RBC 3.95 L (4.30-5.90) M/uL Hgb 12.3 (12.0-16.0) g/dL Hct 35.3 L (36.0-46.0) % MCV 89.4 (80.0-98.0) fL MCH 31.1 (27.0-32.0) pg MCHC 34.8 (31.0-37.0) g/dL RDW Std Deviation 37.9 (28.0-62.0) fl RDW Coeff of Gabriela 12 (11.0-15.0) % Plt Count 264 (150-400) K/uL MPV 9.30 (7.40-12.00) fL Neut % (Auto) 62.2 (48.0-80.0) % Lymph % (Auto) 29.9 (16.0-40.0) % Noble % (Auto) 6.6 (0.0-15.0) % Eos % (Auto) 1.1 (0.0-7.0) % Baso % (Auto) 0.2 (0.0-1.5) % Neut # (Auto) 6.1 H (1.4-5.7) K/uL Lymph # (Auto) 2.9 H (0.6-2.4) K/uL Noble # (Auto) 0.7 (0.0-0.8) K/uL Eos # (Auto) 0.1 (0.0-0.7) K/uL Baso # (Auto) 0.0 (0.0-0.1) K/uL Nucleated RBC % 0.0 /100WBC Nucleated RBCs # 0 K/uL Sodium 138 (136-145) mmol/L Potassium 4.1 (3.5-5.1) mmol/L Chloride 103 (98-107) mmol/L Carbon Dioxide 24.5 (21.0-32.0) mmol/L BUN 9 (7.0-18.0) mg/dL Creatinine 0.6 (0.6-1.0) mg/dL Est Cr Clr Drug Dosing 120.63 mL/min Estimated GFR (MDRD) > 60.0 ml/min Glucose 83 (74-106) mg/dL Calcium 8.8 (8.5-10.1) mg/dL Total Bilirubin 0.3 (0.2-1.0) mg/dL AST 18 (15-37) IU/L ALT 23 (14-63) IU/L Alkaline Phosphatase 36 L (46-116) U/L Total Protein 6.9 (6.4-8.2) g/dL Albumin 3.8 (3.4-5.0) g/dL Globulin 3.1 (2.0-3.5) g/dL Albumin/Globulin Ratio 1.2 L (1.3-2.8) HCG, Quant 11276.0 mIU/mL Monoscreen (NEG) 01/30/18 Range/Units 18:35 WBC (4.0-11.0) K/uL RBC (4.30-5.90) M/uL Hgb (12.0-16.0) g/dL Hct (36.0-46.0) % MCV (80.0-98.0) fL MCH (27.0-32.0) pg MCHC (31.0-37.0) g/dL RDW Std Deviation (28.0-62.0) fl RDW Coeff of Gabriela (11.0-15.0) % Plt Count (150-400) K/uL MPV (7.40-12.00) fL Neut % (Auto) (48.0-80.0) % Lymph % (Auto) (16.0-40.0) % Noble % (Auto) (0.0-15.0) % Eos % (Auto) (0.0-7.0) % Baso % (Auto) (0.0-1.5) % Neut # (Auto) (1.4-5.7) K/uL Lymph # (Auto) (0.6-2.4) K/uL Noble # (Auto) (0.0-0.8) K/uL Eos # (Auto) (0.0-0.7) K/uL Baso # (Auto) (0.0-0.1) K/uL Nucleated RBC % /100WBC Nucleated RBCs # K/uL Sodium (136-145) mmol/L Potassium (3.5-5.1) mmol/L Chloride (98-107) mmol/L Carbon Dioxide (21.0-32.0) mmol/L BUN (7.0-18.0) mg/dL Creatinine (0.6-1.0) mg/dL Est Cr Clr Drug Dosing mL/min Estimated GFR (MDRD) ml/min Glucose (74-106) mg/dL Calcium (8.5-10.1) mg/dL Total Bilirubin (0.2-1.0) mg/dL AST (15-37) IU/L ALT (14-63) IU/L Alkaline Phosphatase (46-116) U/L Total Protein (6.4-8.2) g/dL Albumin (3.4-5.0) g/dL Globulin (2.0-3.5) g/dL Albumin/Globulin Ratio (1.3-2.8) HCG, Quant mIU/mL Monoscreen NEGATIVE (NEG) Meds: Medications Discontinued Medications Generic Name Dose Route Start Last Admin Trade Name Freq PRN Reason Stop Dose Admin Sodium Chloride 1,000 mls @ 999 mls/hr 01/30/18 18:30 01/30/18 19:11 Normal Saline IV 01/30/18 19:30 999 mls/hr STAT ONE Administration Ondansetron HCl 4 mg 01/30/18 18:30 01/30/18 19:11 Zomelissa IVPUSH 01/30/18 18:31 4 mg ONETIME ONE Administration Departure - Departure Time of Disposition: 19:51 Disposition: Home, Self-Care 01 Clinical Impression: Early stage of Nausea and vomiting Qualifiers: Vomiting type: unspecified Vomiting Intractability: non-intractable Qualified Code(s): R11.2 - Nausea with vomiting, unspecified - Discharge Information Forms: ED Department Discharge Additional Instructions: The following information is given to patients seen in the emergency department who are being discharged to home. This information is to outline your options for follow-up care. We provide all patients seen in our emergency department with a follow-up referral. The need for follow-up, as well as the timing and circumstances, are variable depending upon the specifics of your emergency department visit. If you don't have a primary care physician on staff, we will provide you with a referral. We always advise you to contact your personal physician following an emergency department visit to inform them of the circumstance of the visit and for follow-up with them and/or the need for any referrals to a consulting specialist. The emergency department will also refer you to a specialist when appropriate. This referral assures that you have the opportunity for follow-up care with a specialist. All of these measure are taken in an effort to provide you with optimal care, which includes your follow-up. Under all circumstances we always encourage you to contact your private physician who remains a resource for coordinating your care. When calling for follow-up care, please make the office aware that this follow-up is from your recent emergency room visit. If for any reason you are refused follow-up, please contact the [facility] Emergency Department at and asked to speak to the emergency department charge nurse. [facility] Primary Care/OB [facility] [address] [place] [id number] 1. Today's lab work is unremarkable. Please continue the medications you were prescribed yesterday as directed. 2. As we discussed please call your [facility] tomorrow and inform them of your ER visits to see if your appointment should be expedited. 3. Increase your oral fluids and rest frequently throughout the day. Eat small frequent meals throughout the day. 4. Return to the ED as needed and as discussed. - My Orders Last 24 Hours: My Active Orders 01/30/18 18:30 Orthostatic Vital Signs [RC] ASDIRECTED - Assessment/Plan Last 24 Hours: My Active Orders 01/30/18 18:30 Orthostatic Vital Signs [RC] ASDIRECTED
[2018-01-30 19:09] LABS: CHLORIDE,CL 103 mmol/L (98-107); SODIUM,NA 138 mmol/L (136-145)
== END 2018-01-30 20:05 | disposition home or self-care (01) ==
LOC: MW.ED 18:29
DX: O21.9 Vomiting of pregnancy, unspecified (principal); Z3A.01 Less than 8 weeks gestation of pregnancy
CPT/HCPCS: 36415; 80053; 84702; 85025; 86308; 96361; 99283; J2405; J7040; 96374

== ENCOUNTER 2018-09-14 05:23 | Inpatient (IN) | payer SELFPAY ==
[~2018-09-14 05:23] MED LIST: Citric Acid/Sodium Citrate Solution 30 ML Cup PO ONE; Oxytocin/0.9 % Sodium Chloride 30 UNIT/500 ML BAG IV SCH; Sodium Chloride 0.9% 10 ML Syringe FLUSH PRN; Sodium Chloride 0.9% 2.5 ML Syringe FLUSH PRN; ceFAZolin 2 GM in Premix Bag 1 BAG IV ONE
[2018-09-14] MEDS: Lactated Ringers 1,000 ML IV SCH ×2 (06:08→07:22)
--- NOTE | 2018-09-14 06:18 | PCM.PREANE ---
Preanesthetic Assessment - Anesthesia/Transfusion/Family Hx Anesthesia History: Prior Anesthesia Without Reaction (Denies N/V with first C- section, but states she received medication to prevent it) Other Type of Anesthesia Reaction Comment: "when my son woke up after surgery he crashed" Transfusion History: No Prior Transfusion(s) - Review of Systems General: No Symptoms Pulmonary: No Symptoms Cardiovascular: No Symptoms Gastrointestinal: No Symptoms Neurological: No Symptoms Other: Reports: None - Physical Assessment Height: 5 ft 3 in Weight: 69.853 kg ASA Class: 2 Mental Status: Alert & Oriented x3 Airway Class: Mallampati = 2 Dentition: Reports: Normal Dentition Thyro-Mental Finger Breadths: 3 Mouth Opening Finger Breadths: 3 ROM/Head Extension: Full Lungs: Clear to Auscultation, Normal Respiratory Effort Cardiovascular: Regular Rate, Regular Rhythm - Lab Values: Laboratory Last Values WBC 10.15 K/uL (4.0-11.0) 09/13/18 11:27 RBC 4.01 M/uL (4.30-5.90) L 09/13/18 11:27 Hgb 11.9 g/dL (12.0-16.0) L 09/13/18 11:27 Hct 36.1 % (36.0-46.0) 09/13/18 11:27 MCV 90.0 fL (80.0-98.0) 09/13/18 11:27 MCH 29.7 pg (27.0-32.0) 09/13/18 11:27 MCHC 33.0 g/dL (31.0-37.0) 09/13/18 11:27 RDW Std Deviation 41.6 fl (28.0-62.0) 09/13/18 11:27 RDW Coeff of Gabriela 13 % (11.0-15.0) 09/13/18 11:27 Plt Count 271 K/uL (150-400) 09/13/18 11:27 MPV 10.70 fL (7.40-12.00) 09/13/18 11:27 Nucleated RBC % 0.0 /100WBC 09/13/18 11:27 Nucleated RBCs # 0 K/uL 09/13/18 11:27 Blood Type B POSITIVE 09/13/18 11:27 Antibody Screen NEGATIVE 09/13/18 11:27 - Allergies Allergies/Adverse Reactions: Allergies Allergy/AdvReac Type Severity Reaction Status Date / Time No Known Allergies Allergy Verified 09/11/18 10:11 - Acknowledgements Anesthesia Type Planned: Spinal (Duramorph) Pt an Appropriate Candidate for the Planned Anesthesia: Yes Alternatives and Risks of Anesthesia Discussed w Pt/Guardian: Yes Pt/Guardian Understands and Agrees with Anesthesia Plan: Yes PreAnesthesia Questionnaire - Past Health History Medical/Surgical History: Denies Medical/Surgical History HEENT History: Reports: None Cardiovascular History: Reports: None Respiratory History: Reports: None Gastrointestinal History: Reports: GERD, Other (See Below) Other Gastrointestinal History: heartburn only during Genitourinary History: Reports: None 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: : 4 Para: 1 LMP (Approximate): Musculoskeletal History: Reports: None Neurological History: Reports: None Psychiatric History: Reports: None Endocrine/Metabolic History: Reports: None Hematologic History: Reports: None Immunologic History: Reports: None Oncologic (Cancer) History: Reports: None Dermatologic History: Reports: None - Infectious Disease History Infectious Disease History: Reports: None - Past Surgical History Head Surgeries/Procedures: Reports: None HEENT Surgical History: Reports: Oral Surgery, Tonsillectomy Female Surgical History: Reports: Section (2012) - SUBSTANCE USE Smoking Status *Q: Former Smoker Recreational Drug Use History: No - HOME MEDS Home Medications: Home Meds Folic Acid/Multivit-Min/Lutein [Multi-Vitamin Gummies] 1 each PO DAILY 01/19/18 [History] - CURRENT (IN HOUSE) MEDS Current Meds: Current Medications Lactated Ringer's (Ringers, Lactated) 1,000 mls @ 500 mls/hr IV BOLUS JASPAL Last Admin: 09/14/18 06:08 Dose: 999 mls/hr Oxytocin/Sodium Chloride (Oxytocin 30 Unit/500 Ml-Ns) 30 unit in 500 mls @ 250 mls/hr IV TITRATE JASPAL Sodium Chloride (Saline Flush) 10 ml FLUSH ASDIRECTED PRN PRN Reason: Keep Vein Open Last Admin: 09/14/18 06:05 Dose: 10 ml Sodium Chloride (Saline Flush) 2.5 ml FLUSH ASDIRECTED PRN PRN Reason: Keep Vein Open Discontinued Medications Citric Acid/Sodium Citrate (Bicitra Solution) 30 ml PO ONETIME ONE Stop: 09/13/18 11:12 Cefazolin Sodium/Dextrose 2 gm (/ Premix) 50 mls @ 100 mls/hr IV ONETIME ONE Stop: 09/13/18 11:40
[2018-09-14] MEDS ORDERED: Morphine PF 10 MG/10 ML SDV ONE (07:21)
[2018-09-14] MEDS ORDERED: ePHEDrine 50 MG/ML SDV ONE (07:21)
[2018-09-14] MEDS ORDERED: Citric Acid/Sodium Citrate Solution 30 ML Cup ONE (08:00)
[2018-09-14] MEDS ORDERED: ceFAZolin 1 GM Vial ONE (08:15)
[2018-09-14] MEDS ORDERED: Phenylephrine/Normal Saline 100 MCG/ML 10 ML Syringe ONE (08:18)
[2018-09-14] MEDS ORDERED: Oxytocin/0.9 % Sodium Chloride 30 UNIT/500 ML BAG ONE (08:22)
[2018-09-14] MEDS ORDERED: Octyl 2-Cyanoacrylate 1 Tube ONE (08:22)
[2018-09-14] MEDS ORDERED: Midazolam 1 MG/ML 2 ML SDV ONE (08:29)
--- NOTE | 2018-09-14 08:56 | PCM.LDHP ---
L&D History of Present Illness - General Date of Service: 09/14/18 Admit Problem/Dx: Patient Status Order with Admit Dx/Problem 09/13/18 11:11 Patient Status [ADT] Routine Admission Diagnosis/Problem Admission Diagnosis/Problem Source of Information: Patient History Limitations: Reports: No Limitations - History of Present Illness Improves with: Reports: None Worsens with: Reports: None Associated Symptoms: Reports: N - Related Data Allergies/Adverse Reactions: Allergies Allergy/AdvReac Type Severity Reaction Status Date / Time No Known Allergies Allergy Verified 09/11/18 10:11 Home Medications: Home Meds Folic Acid/Multivit-Min/Lutein [Multi-Vitamin Gummies] 1 each PO DAILY 01/19/18 [History] Past Medical History - Past Health History Medical/Surgical History: Denies Medical/Surgical History HEENT History: Reports: None Cardiovascular History: Reports: None Respiratory History: Reports: None Gastrointestinal History: Reports: GERD, Other (See Below) Other Gastrointestinal History: heartburn only during Genitourinary History: Reports: None 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: Musculoskeletal History: Reports: None Neurological History: Reports: None Psychiatric History: Reports: None Endocrine/Metabolic History: Reports: None Hematologic History: Reports: None Immunologic History: Reports: None Oncologic (Cancer) History: Reports: None Dermatologic History: Reports: None - Infectious Disease History Infectious Disease History: Reports: None - Past Surgical History Head Surgeries/Procedures: Reports: None HEENT Surgical History: Reports: Oral Surgery, Tonsillectomy Female Surgical History: Reports: Section Social & Family History - Family History Family Medical History: Noncontributory - Tobacco Use Smoking Status *Q: Former Smoker Years of Tobacco use: 5 Packs/Tins Daily: 1 Used Tobacco, but Quit: Yes Month/Year Tobacco Last Used: 12/2017 Second Hand Smoke Exposure: Yes - Recreational Drug Use Recreational Drug Use: No H&P Review of Systems - Review of Systems: Review Of Systems: See Below General: Reports: No Symptoms HEENT: Reports: No Symptoms Pulmonary: Reports: No Symptoms Cardiovascular: Reports: No Symptoms Gastrointestinal: Reports: No Symptoms Genitourinary: Reports: No Symptoms Musculoskeletal: Reports: No Symptoms Skin: Reports: No Symptoms Psychiatric: Reports: No Symptoms Neurological: Reports: No Symptoms Hematologic/Lymphatic: Reports: No Symptoms Immunologic: Reports: No Symptoms L&D Exam - Exam Exam: See Below - Vital Signs Weight: 69.853 kg - OB Specific Fundal Height In cm: 36 Contraction Intensity: Mild Movement: Active Heart Tones: Present Presentation: Vertex - Torres Score Torres Score Cervix Position: Midposition Torres Score Consistency: Medium Torres Score Effacement: 31-50% Torres Score Dilation: Closed Torres Score 's Station: -3 Torres Score Total: 3 - Patient Data Lab Results Last 24 hrs: Laboratory Results - last 24 hr 09/13/18 09/13/18 Range/Units 11:27 11:27 WBC 10.15 (4.0-11.0) K/uL RBC 4.01 L (4.30-5.90) M/uL Hgb 11.9 L (12.0-16.0) g/dL Hct 36.1 (36.0-46.0) % MCV 90.0 (80.0-98.0) fL MCH 29.7 (27.0-32.0) pg MCHC 33.0 (31.0-37.0) g/dL RDW Std Deviation 41.6 (28.0-62.0) fl RDW Coeff of Gabriela 13 (11.0-15.0) % Plt Count 271 (150-400) K/uL MPV 10.70 (7.40-12.00) fL Nucleated RBC % 0.0 /100WBC Nucleated RBCs # 0 K/uL Blood Type B POSITIVE Antibody Screen NEGATIVE Result Diagrams: 09/13/18 11:27 Problem List Initiated/Reviewed/Updated: Yes Orders Last 24hrs: Active Orders 24 hr Category Date Time Status Patient Status [ADT] Routine ADT 09/13/18 11:11 Active Non Stress Test [RC] PER UNIT ROUTINE Care 09/13/18 11:11 Active Procedure Site Prep Instruct [RC] ASDIRECTED Care 09/13/18 11:11 Active Up ad Jamila [RC] ASDIRECTED Care 09/13/18 11:11 Active Vital Signs [RC] PER UNIT ROUTINE Care 09/13/18 11:11 Active Lactated Ringers [Ringers, Lactated] 1,000 ml Med 09/13/18 11:15 Active IV BOLUS Oxytocin/0.9 % Sodium Chloride [Oxytocin 30 Unit/500 ML Med 09/13/18 11:15 Active -NS] 30 unit in 500 ml IV TITRATE Sodium Chloride 0.9% [Saline Flush] Med 09/13/18 11:11 Active 10 ml FLUSH ASDIRECTED PRN Sodium Chloride 0.9% [Saline Flush] Med 09/13/18 11:11 Active 2.5 ml FLUSH ASDIRECTED PRN Peripheral IV Insertion Adult [OM.PC] Routine Oth 09/13/18 11:11 Ordered Schedule Procedure [COMM] Per Unit Routine Oth 09/13/18 11:11 Ordered Resuscitation Status Routine Resus Stat 09/13/18 11:11 Ordered Medication Orders Lactated Ringer's (Ringers, Lactated) 1,000 mls @ 500 mls/hr IV BOLUS JASPAL Last Admin: 09/14/18 07:22 Dose: 999 mls/hr Infusion: 09/14/18 07:09 Dose: 999 mls/hr Admin: 09/14/18 06:08 Dose: 999 mls/hr Oxytocin/Sodium Chloride (Oxytocin 30 Unit/500 Ml-Ns) 30 unit in 500 mls @ 250 mls/hr IV TITRATE JASPAL Sodium Chloride (Saline Flush) 10 ml FLUSH ASDIRECTED PRN PRN Reason: Keep Vein Open Last Admin: 09/14/18 06:05 Dose: 10 ml Sodium Chloride (Saline Flush) 2.5 ml FLUSH ASDIRECTED PRN PRN Reason: Keep Vein Open
[2018-09-14] MEDS ORDERED: diphenhydrAMINE 50 MG/ML SDV IVPUSH PRN (08:58)
[2018-09-14] MEDS ORDERED: Acetaminophen/oxyCODONE 325-5 MG Tab PO PRN ×3 (08:58→09:07)
[2018-09-14] MEDS ORDERED: Bisacodyl 10 MG Supp RECTAL PRN (08:58)
[2018-09-14] MEDS ORDERED: Lanolin 100% Cream 7 GM Tube TOP PRN (08:58)
[2018-09-14] MEDS ORDERED: Ibuprofen 800 MG Tab PO PRN (08:58)
[2018-09-14] MEDS ORDERED: Ondansetron 4 MG/2 ML SDV IVPUSH PRN (08:58)
--- NOTE | 2018-09-14 08:58 | PCM.OPNOTE ---
- General Post-Op/Procedure Note Date of Surgery/Procedure: 09/14/18 Operative Procedure(s): Repeat C/Section. Pre Op Diagnosis: IUP 39+ previous C/sectionX2 Post-Op Diagnosis: Same Anesthesia Technique: Spinal Primary Surgeon: Rigoberto Troncoso EBL in mLs: 500 Complications: None Condition: Good
[2018-09-14] MEDS ORDERED: Lactated Ringers 1,000 ML IV SCH (09:00)
[2018-09-14] MEDS ORDERED: Nalbuphine 10 MG/1 ML Vial IVPUSH PRN (09:09)
[2018-09-14] MEDS ORDERED: Naloxone 0.4 MG/ML Syringe IVPUSH PRN (09:09)
[2018-09-14] MEDS: Ketorolac 30 MG/ML SDV IVPUSH SCH ×3 (09:21→20:30)
[2018-09-14] MEDS: Docusate Sodium 100 MG Cap PO SCH ×2 (11:30→20:06)
--- NOTE | 2018-09-14 12:41 | OR ---
SURGEON: Rigoberto Troncoso MD DATE OF PROCEDURE: 09/14/2018 PREOPERATIVE DIAGNOSES: Intrauterine , 39+ weeks, previous section x2. POSTOPERATIVE DIAGNOSES: Intrauterine , 39+ weeks, previous section x2. OPERATION PERFORMED: Repeat low-transverse section. CARPET LAYER HELPER: OR tech. ANESTHESIA: Spinal. ANESTHESIOLOGISTS: Dr. Rocío Adams and Dr. Armijo. ESTIMATED BLOOD LOSS: 500 mL. COMPLICATIONS: None. FINDINGS: Female fetus. score reported to be 8 and 9. The weight is not available. INDICATION FOR SURGERY: This patient is 23. She have two previous section. She is term. She is followed in our clinic primarily by me. She is admitted for elective repeat section. She have no complication, and her GBS status was negative. PROCEDURE IN DETAIL: The patient was brought to the OR, properly identified and after adequate level of spinal anesthesia, Cantrell catheter is in place and the patient was prepped and draped in sterile fashion as usual and after time-out was taken, again properly identifying the patient, low-transverse Pfannenstiel skin incision through the old scar was done. Celestine's fascia and rectus fascia were opened in direction of the incision. The two recti muscles were and peritoneal cavity was entered. Bladder flap was raised in the usual manner pushing the bladder away from the lower uterine segment and low transverse uterine incision extended manually with hand. Fetus was in a vertex position, delivered without any problem. Handed to the nurse resuscitator who is present at the time of the delivery. The was reported to be 8 and 9. The weight is not available. The placenta delivered spontaneous, complete, and intact, and repair of the lower uterine segment was done with 2-0 Vicryl continuous interlocking in 2 layers. Reperitonealization done with 3-0 Vicryl continuous, and then the peritoneal cavity was closed with 3-0 Vicryl continuous. The rectus fascia was closed with #1 PDS single strand continuous, the Celestine's fascia with 3-0 Vicryl continuous, and the skin was closed with skin clips, Insorb, and Dermabond. Instrument and sponge counts were correct. The patient tolerated the procedure well, went to recovery room in stable general condition. BARB / FRANSISCA /[id number]
--- NOTE | 2018-09-14 17:43 | PCM48HPAN ---
Post Anesthesia Note - EVALUATION WITHIN 48HRS OF ANESTHETIC Vital Signs in Normal Range: Yes Patient Participated in Evaluation: Yes Respiratory Function Stable: Yes Airway Patent: Yes Cardiovascular Function Stable: Yes Hydration Status Stable: Yes Pain Control Satisfactory: Yes Nausea and Vomiting Control Satisfactory: Yes Mental Status Recovered: Yes Resp Rate: 16 - COMMENTS/OBSERVATIONS Free Text/Narrative:: Pt doing well post op with pain well controlled and using benadryl for pruritis. No apparent anesthesia complications.
[2018-09-15] MEDS: Ketorolac 30 MG/ML SDV IVPUSH SCH ×2 (02:40→08:41)
[2018-09-15] MEDS: Docusate Sodium 100 MG Cap PO SCH (10:42)
--- NOTE | 2018-09-15 10:49 | PCM.PNPP ---
- General Info Date of Service: 09/15/18 Functional Status: Reports: Pain Controlled - Review of Systems General: Reports: No Symptoms HEENT: Reports: No Symptoms Pulmonary: Reports: No Symptoms Cardiovascular: Reports: No Symptoms Gastrointestinal: Reports: No Symptoms Genitourinary: Reports: No Symptoms Musculoskeletal: Reports: No Symptoms Skin: Reports: No Symptoms Neurological: Reports: No Symptoms Psychiatric: Reports: No Symptoms - General Info Date of Service: 09/15/18 - Patient Data Vital Signs - Most Recent: Last Vital Signs Temp 36.6 C 09/15/18 07:30 Pulse 94 09/15/18 07:30 Resp 16 09/15/18 07:30 BP 118/75 09/15/18 07:30 Pulse Ox 99 09/15/18 07:30 Weight - Most Recent: 69.853 kg I&O - Last 24 Hours: Intake & Output 09/14/18 09/15/18 09/15/18 22:59 06:59 14:59 Output Total 1475 2200 Balance -1475 -2200 Lab Results - Last 24 Hours: Laboratory Results - last 24 hr 09/15/18 Range/Units 05:53 Hgb 11.1 L (12.0-16.0) g/dL Hct 33.9 L (36.0-46.0) % Med Orders - Current: Current Medications Bisacodyl (Dulcolax) 10 mg RECTAL ONETIME PRN PRN Reason: Constipation Diphenhydramine HCl (Benadryl) 25 mg IVPUSH Q6H PRN PRN Reason: Itching or Nausea Last Admin: 09/14/18 11:43 Dose: 25 mg Docusate Sodium (Colace) 100 mg PO BID [facility] Last Admin: 09/15/18 10:42 Dose: 100 mg Emollient Ointment (Lansinoh Hpa) 0 gm TOP ASDIRECTED PRN PRN Reason: Sore Nipples Lactated Ringer's (Ringers, Lactated) 1,000 mls @ 500 mls/hr IV BOLUS [facility] Last Admin: 09/14/18 07:22 Dose: 999 mls/hr Oxytocin/Sodium Chloride (Oxytocin 30 Unit/500 Ml-Ns) 30 unit in 500 mls @ 250 mls/hr IV TITRATE JASPAL Lactated Ringer's (Ringers, Lactated) 1,000 mls @ 125 mls/hr IV ASDIRECTED JASPAL Ibuprofen (Motrin) 800 mg PO Q8H PRN PRN Reason: mild pain or fever Ondansetron HCl (Zofran) 4 mg IVPUSH Q4H PRN PRN Reason: Nausea/Vomiting Oxycodone/Acetaminophen (Percocet 325-5 Mg) 1 tab PO Q4H PRN PRN Reason: Pain (moderate 4-6) Oxycodone/Acetaminophen (Percocet 325-5 Mg) 2 tab PO Q4H PRN PRN Reason: Pain (moderate 4-6) Sodium Chloride (Saline Flush) 10 ml FLUSH ASDIRECTED PRN PRN Reason: Keep Vein Open Last Admin: 09/14/18 06:05 Dose: 10 ml Sodium Chloride (Saline Flush) 2.5 ml FLUSH ASDIRECTED PRN PRN Reason: Keep Vein Open Discontinued Medications Cefazolin Sodium (Ancef) Confirm Administered Dose 1 gm .ROUTE .STK-MED ONE Stop: 09/14/18 08:16 Citric Acid/Sodium Citrate (Bicitra Solution) 30 ml PO ONETIME ONE Stop: 09/13/18 11:12 Last Admin: 09/14/18 18:22 Dose: Not Given Citric Acid/Sodium Citrate (Bicitra Solution) Confirm Administered Dose 30 ml .ROUTE .STK-MED ONE Stop: 09/14/18 08:01 Last Admin: 09/14/18 18:22 Dose: Not Given Ephedrine Sulfate (Ephedrine Sulfate) Confirm Administered Dose 50 mg .ROUTE .STK-MED ONE Stop: 09/14/18 07:22 Cefazolin Sodium/Dextrose 2 gm (/ Premix) 50 mls @ 100 mls/hr IV ONETIME ONE Stop: 09/13/18 11:40 Last Admin: 09/14/18 18:21 Dose: Not Given Cefazolin Sodium/Dextrose (Ancef) Confirm Administered Dose 50 mls @ as directed .ROUTE .STK-MED ONE Stop: 09/14/18 07:28 Oxytocin/Sodium Chloride (Oxytocin 30 Unit/500 Ml-Ns) Confirm Administered Dose 30 unit in 500 mls @ as directed .ROUTE .STK-MED ONE Stop: 09/14/18 08:23 Ketorolac Tromethamine (Toradol) 30 mg IVPUSH Q6H [facility] Stop: 09/15/18 09:01 Last Admin: 09/15/18 08:41 Dose: 30 mg Midazolam HCl (Versed 1 Mg/Ml) Confirm Administered Dose 2 mg .ROUTE .STK-MED ONE Stop: 09/14/18 08:30 Morphine Sulfate (Duramorph Pf) Confirm Administered Dose 10 mg .ROUTE .STK-MED ONE Stop: 09/14/18 07:22 Nalbuphine HCl (Nubain) 5 mg IVPUSH Q3H PRN PRN Reason: Pruritis Stop: 09/15/18 09:09 Last Admin: 09/14/18 20:06 Dose: 5 mg Naloxone HCl (Narcan) 0.1 mg IVPUSH ONETIME PRN PRN Reason: RR<6 WITH STIMULATION Stop: 09/15/18 09:09 Octyl Cyanoacrylate (Dermabond Advance) Confirm Administered Dose 1 applic .ROUTE .STK-MED ONE Stop: 09/14/18 08:23 Oxycodone/Acetaminophen (Percocet 325-5 Mg) 1 tab PO .Q4HRS PRN PRN Reason: Breakthrough Pain Stop: 09/15/18 09:00 Phenylephrine HCl (Phenylephrine In Ns 100 Mcg/Ml) Confirm Administered Dose 1 mg .ROUTE .STK-MED ONE Stop: 09/14/18 08:19 - Interaction Infant Disposition, : in Room with Family Interaction: Holding Infant Infant Feeding: Attempted ; Nursed Fair/Poor Support Person: Significant Other - Recovery Exam Fundal Tone: Firm Fundal Level: At Umbilicus Fundal Placement: Midline Lochia Amount: Scant Lochia Color: Rubra/Red Perineum Description: Intact, Minimal Bruising/Swelling Episiotomy/Laceration: None Bladder Status: Voiding Urinary Elimination: Voided - Exam General: Alert, Oriented HEENT: Pupils Equal Neck: Supple Lungs: Clear to Auscultation, Normal Respiratory Effort Cardiovascular: Regular Rate, Regular Rhythm GI/Abdominal Exam: Normal Bowel Sounds, Soft, Non-Tender, No Organomegaly, No Distention, No Abnormal Bruit, No Mass, Pelvis Stable Extremities: Normal Inspection, Normal Range of Motion, Non-Tender, No Pedal Edema, Normal Capillary Refill Skin: Warm, Dry, Intact Wound/Incisions: Healing Well Neurological: No New Focal Deficit Psy/Mental Status: Alert, Normal Affect, Normal Mood - Problem List Review Problem List Initiated/Reviewed/Updated: Yes - My Orders Last 24 Hours: My Active Orders 09/14/18 Lunch Regular Diet [DIET] - Assessment Assessment:: Status post section postoperative day #1 the patient is doing well she is on regular diet she is voiding without any problem the incision is clean and dry and she have been normal lochia. She is breast-feeding and we are planning to discharge her in a.m. - Plan Plan:: Plan to discharge the patient in a.m.
--- NOTE | 2018-09-15 15:17 | PCM.DCSUM1 ---
Discharge Summary - Hospital Course Diagnosis: Stroke: No - Discharge Data Discharge Date: 09/15/18 Discharge Disposition: Home, Self-Care 01 Condition: Good - Patient Summary/Data Operative Procedure(s) Performed: Repeat C/Section. - Patient Instructions Diet: Usual Diet as Tolerated Activity: As Tolerated Driving: Do Not Drive Showering/Bathing: May Shower Wound/Incision Care: Keep Operative Site/Wound Site Clean and Dry Notify Provider of: Fever, Increased Pain, Nausea and/or Vomiting - Discharge Plan Home Medications: Home Meds Folic Acid/Multivit-Min/Lutein [Multi-Vitamin Gummies] 1 each PO DAILY 01/19/18 [History] Referrals: [facility] [Outside] Rigoberto Troncoso MD [Physician] - 09/22/18 10:45 am - Discharge Summary/Plan Comment DC Time >30 min.: Yes - General Info Date of Service: 09/15/18 Functional Status: Reports: Pain Controlled - Review of Systems General: Reports: No Symptoms HEENT: Reports: No Symptoms Pulmonary: Reports: No Symptoms Cardiovascular: Reports: No Symptoms Gastrointestinal: Reports: No Symptoms Genitourinary: Reports: No Symptoms Musculoskeletal: Reports: No Symptoms Skin: Reports: No Symptoms Neurological: Reports: No Symptoms Psychiatric: Reports: No Symptoms - Patient Data Vitals - Most Recent: Last Vital Signs Temp 36.6 C 09/15/18 07:30 Pulse 94 09/15/18 07:30 Resp 16 09/15/18 07:30 BP 118/75 09/15/18 07:30 Pulse Ox 99 09/15/18 07:30 Weight - Most Recent: 69.853 kg I&O - Last 24 hours: Intake & Output 09/15/18 09/15/18 09/15/18 06:59 14:59 22:59 Output Total 2200 750 Balance -2200 -750 Lab Results - Last 24 hrs: Laboratory Results - last 24 hr 09/15/18 Range/Units 05:53 Hgb 11.1 L (12.0-16.0) g/dL Hct 33.9 L (36.0-46.0) % Med Orders - Current: Current Medications Bisacodyl (Dulcolax) 10 mg RECTAL ONETIME PRN PRN Reason: Constipation Diphenhydramine HCl (Benadryl) 25 mg IVPUSH Q6H PRN PRN Reason: Itching or Nausea Last Admin: 09/14/18 11:43 Dose: 25 mg Docusate Sodium (Colace) 100 mg PO BID [facility] Last Admin: 09/15/18 10:42 Dose: 100 mg Emollient Ointment (Lansinoh Hpa) 0 gm TOP ASDIRECTED PRN PRN Reason: Sore Nipples Lactated Ringer's (Ringers, Lactated) 1,000 mls @ 500 mls/hr IV BOLUS [facility] Last Admin: 09/14/18 07:22 Dose: 999 mls/hr Oxytocin/Sodium Chloride (Oxytocin 30 Unit/500 Ml-Ns) 30 unit in 500 mls @ 250 mls/hr IV TITRATE JASPAL Lactated Ringer's (Ringers, Lactated) 1,000 mls @ 125 mls/hr IV ASDIRECTED [facility] Ibuprofen (Motrin) 800 mg PO Q8H PRN PRN Reason: mild pain or fever Last Admin: 09/15/18 14:36 Dose: 800 mg Ondansetron HCl (Zofran) 4 mg IVPUSH Q4H PRN PRN Reason: Nausea/Vomiting Oxycodone/Acetaminophen (Percocet 325-5 Mg) 1 tab PO Q4H PRN PRN Reason: Pain (moderate 4-6) Last Admin: 09/15/18 12:13 Dose: 1 tab Oxycodone/Acetaminophen (Percocet 325-5 Mg) 2 tab PO Q4H PRN PRN Reason: Pain (moderate 4-6) Sodium Chloride (Saline Flush) 10 ml FLUSH ASDIRECTED PRN PRN Reason: Keep Vein Open Last Admin: 09/14/18 06:05 Dose: 10 ml Sodium Chloride (Saline Flush) 2.5 ml FLUSH ASDIRECTED PRN PRN Reason: Keep Vein Open Discontinued Medications Cefazolin Sodium (Ancef) Confirm Administered Dose 1 gm .ROUTE .STK-MED ONE Stop: 09/14/18 08:16 Citric Acid/Sodium Citrate (Bicitra Solution) 30 ml PO ONETIME ONE Stop: 09/13/18 11:12 Last Admin: 09/14/18 18:22 Dose: Not Given Citric Acid/Sodium Citrate (Bicitra Solution) Confirm Administered Dose 30 ml .ROUTE .STK-MED ONE Stop: 09/14/18 08:01 Last Admin: 09/14/18 18:22 Dose: Not Given Ephedrine Sulfate (Ephedrine Sulfate) Confirm Administered Dose 50 mg .ROUTE .STK-MED ONE Stop: 09/14/18 07:22 Cefazolin Sodium/Dextrose 2 gm (/ Premix) 50 mls @ 100 mls/hr IV ONETIME ONE Stop: 09/13/18 11:40 Last Admin: 09/14/18 18:21 Dose: Not Given Cefazolin Sodium/Dextrose (Ancef) Confirm Administered Dose 50 mls @ as directed .ROUTE .STK-MED ONE Stop: 09/14/18 07:28 Oxytocin/Sodium Chloride (Oxytocin 30 Unit/500 Ml-Ns) Confirm Administered Dose 30 unit in 500 mls @ as directed .ROUTE .STK-MED ONE Stop: 09/14/18 08:23 Ketorolac Tromethamine (Toradol) 30 mg IVPUSH Q6H J[facility] Stop: 09/15/18 09:01 Last Admin: 09/15/18 08:41 Dose: 30 mg Midazolam HCl (Versed 1 Mg/Ml) Confirm Administered Dose 2 mg .ROUTE .STK-MED ONE Stop: 09/14/18 08:30 Morphine Sulfate (Duramorph Pf) Confirm Administered Dose 10 mg .ROUTE .STK-MED ONE Stop: 09/14/18 07:22 Nalbuphine HCl (Nubain) 5 mg IVPUSH Q3H PRN PRN Reason: Pruritis Stop: 09/15/18 09:09 Last Admin: 09/14/18 20:06 Dose: 5 mg Naloxone HCl (Narcan) 0.1 mg IVPUSH ONETIME PRN PRN Reason: RR<6 WITH STIMULATION Stop: 09/15/18 09:09 Octyl Cyanoacrylate (Dermabond Advance) Confirm Administered Dose 1 applic .ROUTE .STK-MED ONE Stop: 09/14/18 08:23 Oxycodone/Acetaminophen (Percocet 325-5 Mg) 1 tab PO .Q4HRS PRN PRN Reason: Breakthrough Pain Stop: 09/15/18 09:00 Phenylephrine HCl (Phenylephrine In Ns 100 Mcg/Ml) Confirm Administered Dose 1 mg .ROUTE .STK-MED ONE Stop: 09/14/18 08:19 - Exam General: Reports: Alert, Oriented HEENT: Reports: Pupils Equal, Pupils Reactive, EOMI, Mucous Membr. Moist/[place] Neck: Reports: Supple Lungs: Reports: Clear to Auscultation, Normal Respiratory Effort Cardiovascular: Reports: Regular Rate, Regular Rhythm GI/Abdominal Exam: Normal Bowel Sounds, Soft, Non-Tender, No Organomegaly, No Distention, No Abnormal Bruit, No Mass, Pelvis Stable (Female) Exam: Normal External Exam, Normal Speculum Exam, Normal Bimanual Exam Rectal (Female) Exam: Normal Exam, Normal Rectal Tone Back Exam: Reports: Normal Inspection, Full Range of Motion Extremities: Normal Inspection, Normal Range of Motion, Non-Tender, No Pedal Edema, Normal Capillary Refill Skin: Reports: Warm, Dry, Intact Wound/Incisions: Reports: Healing Well Neurological: Reports: No New Focal Deficit Psy/Mental Status: Reports: Alert, Normal Affect, Normal Mood
== END 2018-09-15 17:20 | disposition home or self-care (01) | DRG 788 ==
LOC: MW.OB 05:23
PROVIDERS: ADMIT Obstetrics & Gynecology; ATTEND Obstetrics & Gynecology
PROC: 10D00Z1 Extraction of Products of Conception, Low, Open Approach (ICD-10-PCS; principal; 2018-09-14)
DX: O34.211 Maternal care for low transverse scar from previous cesarean delivery (principal); N85.8 Other specified noninflammatory disorders of uterus; Z3A.39 39 weeks gestation of pregnancy; Z37.0 Single live birth; O99.73 Diseases of the skin and subcutaneous tissue complicating the puerperium; L29.9 Pruritus, unspecified; Z87.891 Personal history of nicotine dependence
CPT/HCPCS: 36415; 59025; 85014; 85018; 85027; 86850; 86900; 86901; A9270-GY; J0690; J1200; J1885; J2250; J2270; J2300; J2370; J2590; J7120